=== PATIENT | female | born 1985 | race Hispanic/Latino ===

== ENCOUNTER 2022-12-15 17:51 | Emergency (ER) | payer MEDICAID, OTHER ==
[~2022-12-15] VITALS: Ht 160 cm; Wt 80.3 kg
[2022-12-15 17:51] VITALS: BP 131/82; PULSE 73; RESP 20
[2022-12-16 05:20] LABS: HEPATITIS B SURFACE ANTIGEN Non-Reactive (Nonreactive)
== END 2022-12-15 18:45 | disposition home or self-care (01) ==
LOC: EDH 17:53
DX: S61.032A Puncture wound without foreign body of left thumb without damage to nail, initial encounter (principal); Z98.890 Other specified postprocedural states; W46.0XXA Contact with hypodermic needle, initial encounter; Y93.89 Activity, other specified; Y92.89 Other specified places as the place of occurrence of the external cause; Y99.8 Other external cause status
CPT/HCPCS: 36415; 86701; 86704; 86706; 87340; 87390; 87520